=== PATIENT | male | born 1945 ===

== ENCOUNTER 2018-08-25 11:57 | Emergency (ER) | payer MEDICARE, OTHER ==
[2018-08-25 12:06] VITALS: BMI 24.9
[2018-08-25 12:07] VITALS: RESP 18; TEMP 97.9
--- NOTE | 2018-08-25 14:25 | ED PDOC ---
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 Patient is complaining of pain to the area on scalp and is actively scratching. Denies fever and pain anywhere else. PMD: Dr. Aldana Past Medical History Reviewed: Historical Data, Nursing Documentation, Vital Signs Vital Signs: Last Vital Signs Temp 97.9 F 08/25/18 12:06 Pulse 74 08/25/18 12:06 Resp 18 08/25/18 12:06 BP 144/83 08/25/18 12:06 Pulse Ox 99 08/25/18 12:06 - Medical History PMH: Diabetes, Hypercholesterolemia - Surgical History Surgical History: No Surg Hx - Family History Family History: States: Unknown Family Hx - Home Medications Home Medications: Ambulatory Orders Medication Instructions Recorded Albuterol HFA [Ventolin HFA 90 2 puff IH Q4H #1 puff 05/22/15 mcg/actuation (8 g)] Amoxicillin [Amoxil] 500 mg PO TID #30 cap 05/22/15 Codeine Phos/Phenyleph HCl/P 5 ml PO Q6H #100 syr 05/22/15 [Phenergan Vc W/Codeine 120 ml] Permethrin 5% [Permethrin 5% Cream] 6 applic EXT DAILY #1 tube 08/25/18 - Allergies Allergies/Adverse Reactions: Allergies Allergy/AdvReac Type Severity Reaction Status Date / Time No Known Allergies Allergy Verified 05/22/15 07:22 Review of Systems ROS Statement: Except As Marked, All Systems Reviewed And Found Negative Constitutional: Negative for: Fever Skin: Positive for: Rash Physical Exam - Reviewed Nursing Documentation Reviewed: Yes Vital Signs Reviewed: Yes - Physical Exam Appears: Positive for: No Acute Distress Head Exam: Positive for: ATRAUMATIC, NORMAL INSPECTION, NORMOCEPHALIC Skin: Positive for: Warm, Dry, Rash (papular lesions to scalp, forehead and torso that crosses midline; no vesicles) Eye Exam: Positive for: EOMI, Normal appearance, PERRL Neck: Positive for: Normal, Painless ROM, Supple Cardiovascular/Chest: Positive for: Regular Rate, Rhythm. Negative for: Murmur Respiratory: Positive for: Normal Breath Sounds. Negative for: Respiratory Distress Gastrointestinal/Abdominal: Positive for: Normal Exam, Soft. Negative for: Tenderness Back: Positive for: Normal Inspection. Negative for: L CVA Tenderness, R CVA Tenderness Extremity: Positive for: Normal ROM (x 4). Negative for: Deformity Neurological/Psych: Positive for: Awake, Alert, Normal Tone, Oriented (x 3). Negative for: Motor/Sensory Deficits - ECG O2 Sat by Pulse Oximetry: 99 (RA) Pulse Ox Interpretation: Normal Medical Decision Making Medical Decision Makin:33 Impression: scabies Initial Plan: --Glucose POC Scribe Attestation: Documented by Yany Contreras, acting as a scribe for Shirley Gatica MD Provider Scribe Attestation: All medical record entries made by the Scribe were at my direction and personally dictated by me. I have reviewed the chart and agree that the record accurately reflects my personal performance of the history, physical exam, medical decision making, and the department course for this patient. I have also personally directed, reviewed, and agree with the discharge instructions and disposition Disposition - Clinical Impression Clinical Impression: Rash - Disposition Referrals: Antonio Stewart MD [Family Provider] - Disposition: Routine/Home Disposition Time: 14:44 Condition: STABLE Prescriptions: Permethrin 5% [Permethrin 5% Cream] 6 applic EXT DAILY #1 tube Instructions: Scabies Forms: [employer] (Estonian) Print Language: ENGLISH
[2018-08-25 15:11] VITALS: BP 141/76; PULSE 62
[2018-08-27 10:57] VITALS: O2SAT 99
== END 2018-08-25 15:09 | disposition home or self-care (01) ==
LOC: H.ER 11:57
DX: R21 Rash and other nonspecific skin eruption (principal); E11.9 Type 2 diabetes mellitus without complications; B86 Scabies; E78.00 Pure hypercholesterolemia, unspecified